=== PATIENT | female | born 1945 | race Hispanic/Latino ===

== ENCOUNTER 2016-09-02 12:13 | Emergency (ER) | payer MEDICARE, OTHER ==
[2016-09-02] MEDS ORDERED: TYLENOL #3 PO ONE (15:39)
[2016-09-02 16:19] LABS: Basophils % (Auto) 0.2 % (0.0-1.8); Eosinophils % (Auto) 0.3 % (0.0-4.3); Hematocrit 44.2 % (30.3-42.9); Hemoglobin 14.7 gm/dl (10.1-14.3); Mean Corpuscular HGB Conc 33 % (30-34); Mean Corpuscular Hemoglobin 29 pg (28-32); Mean Corpuscular Volume 88 fl (79-97); Platelet Count 243 K/mm3 (140-440); Red Blood Count 5.04 M/mm3 (3.65-5.03); Red Cell Distribution Width 13.6 % (13.2-15.2); White Blood Count 9.8 K/mm3 (4.5-11.0)
[2016-09-02 16:35] LABS: Alanine Aminotransferase 24 units/L (7-56); Albumin 4.5 g/dL (3.9-5); Albumin/Globulin Ratio 1.6 %; Alkaline Phosphatase 97 units/L (35-129); Anion Gap 20 mmol/L; Bilirubin,Total 0.5 mg/dL (0.1-1.2); Blood Urea Nitrogen 24 mg/dL (7-17); Calcium 9.9 mg/dL (8.4-10.2); Carbon Dioxide 26 mmol/L (22-30); Chloride 100.3 mmol/L (98-107); Glucose 156 mg/dL (65-100); Potassium 4.4 mmol/L (3.6-5.0); Sodium 142 mmol/L (137-145); Total Protein 7.3 g/dL (6.3-8.2)
--- NOTE | 2016-09-02 16:44 | Emergency Department Report ---
HPI - General Chief Complaint: Syncope Time Seen by Provider: 09/02/16 15:29 - HPI HPI: The patient is a 71-year-old female who presents for evaluation of knee pain and syncope. The patient states that this morning after waking at 10 AM, approximately 2 hours prior to arrival, she experienced an episode of severe pain to the left knee followed by syncope. The patient's was present and witnessed the event. The patient states that she bent over to pick something up and upon extending the left knee she experienced severe 10 out of 10 sharp and squeezing pain to the left knee, worse in with weightbearing. She shares that moments later she developed lightheadedness and blacked out, for seconds per her . He states that she was sitting down when she blacked out and that he caught her. She says that she has a long-standing history of chronic left knee pain. She states that she did not strike her left knee or strike her head. The patient also denies fever, headache, neck pain, neck stiffness, chest pain, dyspnea, cough, hemoptysis, vision or hearing changes, smell or taste changes, paresthesias, motor deficit, seizure-like activity, urine or bowel incontinence or retention, or other focal neurological deficit. ED Past Medical Hx - Past Medical History Previous Medical History?: Yes Hx Arthritis: Yes Hx Psychiatric Treatment: Yes (depression) - Surgical History Past Surgical History?: No - Social History Smoking Status: Never Smoker Substance Use Type: None - Medications Home Medications: Home Medications Medication Instructions Recorded Confirmed Last Taken Type HYDROcodone/APAP 7.5-325 [[place] 1 each PO Q8HR PRN #12 tablet 09/02/16 Unknown Rx 7.5-325 mg TAB] ED Review of Systems ROS: Stated complaint: PASSED OUT Other details as noted in HPI Constitutional: denies: fever ENT: denies: throat or neck pain Respiratory: denies: cough, shortness of breath Cardiovascular: denies: chest pain Endocrine: denies unexplained weight loss or gain Gastrointestinal: denies: abdominal pain, nausea Genitourinary: denies: dysuria Musculoskeletal: reports knee pain Skin: denies: rash Neurological: denies: headache Hematological/Lymphatic: denies: easy bleeding or easy bruising Psych: denies sadness or hopelessness Physical Exam - Physical Exam Vital Signs: Vital Signs 09/02/16 09/02/16 09/02/16 12:37 12:47 13:00 Temperature 98.3 F Pulse Rate 62 59 L Respiratory 15 10 L Rate Blood Pressure 120/66 O2 Sat by Pulse 100 Oximetry 09/02/16 09/02/16 09/02/16 13:30 13:47 14:00 Temperature Pulse Rate 60 66 Respiratory 14 14 17 Rate Blood Pressure 120/64 118/69 O2 Sat by Pulse 99 99 96 Oximetry 09/02/16 09/02/16 09/02/16 14:30 15:00 15:57 Temperature Pulse Rate 69 66 Respiratory 14 12 12 Rate Blood Pressure 124/69 113/77 O2 Sat by Pulse 95 93 Oximetry Physical Exam: General: well-nourished, well-developed, no acute distress Head: Normocephalic, atraumatic Eyes: normal sclera ENT: Mucous membranes are pale and dry Neck: No neck stiffness, no cervical adenopathy Respiratory: Breath sounds equal bilaterally, no wheezing, rales, or rhonchi Cardio: S1 and S2 present, no murmurs, rubs, gallops, capillary refill is delayed Abdomen: Normoactive bowel sounds, soft abdomen, no rigidity, no guarding or rebound tenderness Musc: Inspection of the left knee unremarkable, lateral and medial joint line tenderness to palpation present, sensation and motor function intact, distal pulses intact, No pitting edema Skin: No rash Neuro: Alert oriented 3, no facial drooping, normal speech, CN2 through 12 intact, no pronator drift, no sensation or motor deficit, reflexes 2+ and symmetric on DTR testing, no obvious gross neuro deficits Psych: Normal affect ED Course Vital Signs 09/02/16 09/02/16 09/02/16 12:37 12:47 13:00 Temperature 98.3 F Pulse Rate 62 59 L Respiratory 15 10 L Rate Blood Pressure 120/66 O2 Sat by Pulse 100 Oximetry 09/02/16 09/02/16 09/02/16 13:30 13:47 14:00 Temperature Pulse Rate 60 66 Respiratory 14 14 17 Rate Blood Pressure 120/64 118/69 O2 Sat by Pulse 99 99 96 Oximetry 09/02/16 09/02/16 09/02/16 14:30 15:00 15:57 Temperature Pulse Rate 69 66 Respiratory 14 12 12 Rate Blood Pressure 124/69 113/77 O2 Sat by Pulse 95 93 Oximetry ED Medical Decision Making - Lab Data Result diagrams: 09/02/16 15:52 09/02/16 15:52 - Medical Decision Making The patient was seen and examined by myself. The patient is placed on a monitor technician and continuous pulse ox. On initial evaluation, the patient was found to be in no distress. Evaluation orders were placed. The patient is given a tablet of Tylenol for her pain. The patient declines normal saline fluid bolus for treatment of dehydration. Lab results reveal elevated hemoglobin and hematocrit, consistent with hemoconcentration and exam findings of dehydration, and otherwise labs were grossly unremarkable. X-ray of the left knee is negative for acute fracture or dislocation. The patient was reevaluated and reported that their symptoms were markedly improved. The patient is stable for discharge with outpatient follow-up. The patient is given follow-up and return instructions. The patient expressed understanding and agreed with the plan. The patient is discharged in stable condition. Critical care attestation.: If time is entered above; I have spent that time in minutes in the direct care of this critically ill patient, excluding procedure time. ED Disposition Clinical Impression: Dehydration, Acute pain of left knee, Syncope and collapse, Orthostatic syncope Disposition: DISCHARGED TO HOME OR SELFCARE Is pt being admited?: No Does the pt Need Aspirin: No Condition: Stable Instructions: Syncope (ED), Arthralgia (ED) Prescriptions: HYDROcodone/APAP 7.5-325 [[place] 7.5-325 mg TAB] 1 each PO Q8HR PRN #12 tablet PRN Reason: Pain Referrals: PRIMARY CARE, [Primary Care Provider] - 3-5 Days Time of Disposition: 16:44
[2016-09-02 16:59] VITALS: BP 126/80
--- NOTE | 2016-09-03 10:08 | XRay Report ---
LEFT KNEE, TWO VIEWS HISTORY: Left knee pain. FINDINGS: There is normal bone mineralization. Moderate to severe osteoarthritic changes are identified in the medial compartment and patellofemoral space. There is relative sparing of the lateral compartment. Retropatellar and tibial spine spurring is identified. Small joint effusion is suspected on the lateral image. No fracture or bone lesion appreciated. IMPRESSION: Advanced osteoarthritic changes. Small joint effusion. No acute process appreciated.
== END 2016-09-02 17:00 | disposition home or self-care (01) ==
LOC: ED 12:13
DX: M25.562 Pain in left knee (principal); R55 Syncope and collapse; E86.0 Dehydration; M19.90 Unspecified osteoarthritis, unspecified site; F32.9 Major depressive disorder, single episode, unspecified
CPT/HCPCS: 36415; 80053; 85025; 93005; 93010; 99285